=== PATIENT | male | born 1985 | race African-American/Black ===

== ENCOUNTER 2021-09-29 06:50 | Inpatient (IN) | payer OTHER, MEDICAID ==
[~2021-09-29] VITALS: Ht 170.2 cm; Wt 87.6 kg
[2021-09-29] MEDS ORDERED: FAMOTIDINE 20MG/2ML VIAL IV STA (08:34)
[2021-09-29] MEDS ORDERED: MAGNESIUM/ALUMINUM HYDROXIDE/SIMETHICONE 30ML UDC PO STA (08:34)
[2021-09-29] MEDS ORDERED: METOCLOPRAMIDE HCL 10MG/2ML VIAL IV STA ×2 (08:34→09:25)
[2021-09-29] MEDS ORDERED: SODIUM CHLORIDE 0.9% 1,000 ML IV ONE (08:45)
[2021-09-29] MEDS ORDERED: PANTOPRAZOLE SODIUM 40 MG/VIAL IV STA (09:25)
[2021-09-29] MEDS ORDERED: MORPHINE SULFATE 4 MG/ML CPJ (NOT FOR IM USE) IV STA (09:25)
[2021-09-29 10:06] LABS: HEMATOCRIT. 39.1 % (42.0-52.0); HEMOGLOBIN. 12.5 g/dL (14.0-18.0); MEAN CORPUSCULAR HEMOGLOBIN 26.3 pg (28.0-32.0); MEAN CORPUSCULAR VOLUME 81.9 fL (80.0-94.0); MEAN PLATELET VOLUME 9.8 fl (7.4-10.4); PLATELET 96 x1000/uL (130-400); RED BLOOD CELL COUNT 4.78 mill/uL (4.7-6.1); RED CELL DISTRIBUTION WIDTH 22.1 % (11.6-14.6)
[2021-09-29 10:12] LABS: CHLORIDE 109 mEq/L (98-107)
[2021-09-29 10:49] LABS: PLATELET ESTIMATE DECREASED
[2021-09-29] MEDS ORDERED: NITROGLYCERIN 0.4MG TABLET SL SL PRN (11:15)
[2021-09-29] MEDS ORDERED: IPRATROPIUM/ALBUTEROL 0.5-3(2.5)MG/3ML NEB NEB PRN (11:15)
[2021-09-29] MEDS ORDERED: ACETAMINOPHEN 650MG SUPP PR PRN ×2 (11:15)
[2021-09-29] MEDS: DEXT 5%/LACTATED RINGERS 1,000 ML IV SCH ×2 (11:57→23:28)
[2021-09-29] MEDS ORDERED: OCTREOTIDE 1,000 MCG in SODIUM CHLORIDE 0.9% 100 ML IV ONE (12:00)
[2021-09-29] MEDS ORDERED: PANTOPRAZOLE 80 MG in SODIUM CHLORIDE 0.9% 100 ML IV SCH (12:00)
[2021-09-29 12:54] LABS: ETHANOL BLOOD 241 mg/dL
[2021-09-29 12:57] LABS: TOTAL IRON BINDING CAPACITY 386 ug/dL (250-450)
[2021-09-29 13:21] LABS: FOLIC ACID (FOLATE) SERUM 14.7 ng/mL (>5.38)
[2021-09-29] MEDS: PANTOPRAZOLE 80 MG in SODIUM CHLORIDE 0.9% 100 ML IV SCH ×2 (13:27→23:08)
[2021-09-29 14:50] LABS: CLARITY URINE CLEAR (CLEAR); COLOR URINE YELLOW (YELLOW); KETONES URINE NEGATIVE (NEGATIVE); LEUKOCYTE ESTERASE URINE NEGATIVE (NEGATIVE); NITRITE URINE NEGATIVE (NEGATIVE); OCCULT BLOOD URINE NEGATIVE (NEGATIVE); PROTEIN URINE NEGATIVE (NEGATIVE); SPECIFIC GRAVITY URINE 1.025 (1.005-1.030)
[2021-09-29 15:04] LABS: *AMPHETAMINES SCREEN URINE NEGATIVE (NEGATIVE); *BARBITURATES SCREEN URINE NEGATIVE (NEGATIVE); *BENZODIAZEPINES SCREEN URINE NEGATIVE (NEGATIVE); *COCAINE SCREEN URINE NEGATIVE (NEGATIVE)
[2021-09-29 15:05] LABS: CANNABINOID URINE SCREEN PRESUMTIVE POSITIVE (NEGATIVE); METHADONE URINE SCREEN NEGATIVE (NEGATIVE); OPIATES URINE SCREEN PRESUMTIVE POSITIVE (NEGATIVE); PHENCYCLIDINE URINE SCREEN NEGATIVE (NEGATIVE)
[2021-09-29] MEDS ORDERED: PROP10TA10 PO (16:55)
[2021-09-29 17:37] VITALS: BP 158/71
[2021-09-29 20:00] VITALS: BP 153/94
[2021-09-29] MEDS ORDERED: PANTOPRAZOLE SODIUM 40 MG/VIAL IV ONE (22:22)
[2021-09-30] VITALS: BP 144/91
[2021-09-30 04:00] VITALS: BP 150/90
[2021-09-30 08:00] VITALS: BP 150/94
[2021-09-30 08:06] LABS: CHLORIDE 106 mEq/L (98-107)
[2021-09-30 08:07] LABS: HEMATOCRIT. 36.2 % (42.0-52.0); HEMOGLOBIN. 11.6 g/dL (14.0-18.0); MEAN CORPUSCULAR HEMOGLOBIN 26.5 pg (28.0-32.0); MEAN CORPUSCULAR VOLUME 82.7 fL (80.0-94.0); MEAN PLATELET VOLUME 9.8 fl (7.4-10.4); PLATELET 58 x1000/uL (130-400); RED BLOOD CELL COUNT 4.38 mill/uL (4.7-6.1); RED CELL DISTRIBUTION WIDTH 22.8 % (11.6-14.6)
[2021-09-30 08:12] LABS: PHOSPHORUS 3.1 mg/dL (2.5-4.9)
[2021-09-30] MEDS: THIAMINE HCL 100MG TABLET PO SCH (08:52)
[2021-09-30] MEDS: FOLIC ACID 1MG TABLET PO SCH (08:52)
[2021-09-30] MEDS: MULTIVITAMINS,THER W-MINERALS TABLET PO SCH (08:52)
[2021-09-30] MEDS: PANTOPRAZOLE 80 MG in SODIUM CHLORIDE 0.9% 100 ML IV SCH (11:54)
[2021-09-30 12:17] VITALS: BP 145/89
[2021-09-30] MEDS ORDERED: ACETAMINOPHEN 650MG/20.3ML UDC PO PRN (12:30)
[2021-09-30 12:34] LABS: PLATELET ESTIMATE DECREASED
[2021-09-30] MEDS: ACETAMINOPHEN 325MG TABLET PO PRN (12:52)
[2021-09-30] MEDS: DEXT 5%/LACTATED RINGERS 1,000 ML IV SCH (14:00)
[2021-09-30 16:00] VITALS: BP 156/86
[2021-09-30] MEDS: PANTOPRAZOLE SODIUM 40 MG/VIAL IV SCH (16:28)
[2021-09-30 20:00] VITALS: BP 144/90
[2021-10-01] VITALS: BP 144/86
[2021-10-01] MEDS: DEXT 5%/LACTATED RINGERS 1,000 ML IV SCH ×2 (02:25→16:04)
[2021-10-01] MEDS: ACETAMINOPHEN 325MG TABLET PO PRN ×2 (02:31→16:20)
[2021-10-01 04:00] VITALS: BP 151/87
[2021-10-01 06:43] LABS: CHLORIDE 108 mEq/L (98-107)
[2021-10-01 07:10] LABS: HEMATOCRIT. 36.4 % (42.0-52.0); HEMOGLOBIN. 11.5 g/dL (14.0-18.0); MEAN CORPUSCULAR HEMOGLOBIN 26.1 pg (28.0-32.0); MEAN CORPUSCULAR VOLUME 82.3 fL (80.0-94.0); MEAN PLATELET VOLUME 9.7 fl (7.4-10.4); RED BLOOD CELL COUNT 4.42 mill/uL (4.7-6.1); RED CELL DISTRIBUTION WIDTH 22.3 % (11.6-14.6)
[2021-10-01 08:00] VITALS: BP 146/76
[2021-10-01] MEDS: PANTOPRAZOLE SODIUM 40 MG/VIAL IV SCH ×2 (09:03→21:17)
[2021-10-01] MEDS: MULTIVITAMINS,THER W-MINERALS TABLET PO SCH (09:03)
[2021-10-01] MEDS: THIAMINE HCL 100MG TABLET PO SCH (09:03)
[2021-10-01] MEDS: FOLIC ACID 1MG TABLET PO SCH (09:03)
[2021-10-01 09:38] LABS: PLATELET 50 x1000/uL (130-400)
[2021-10-01 12:22] VITALS: BP 142/82
[2021-10-01 14:16] LABS: PLATELET ESTIMATE MARKEDLY DECREASED
[2021-10-01 16:00] VITALS: BP 141/92
[2021-10-01 20:00] VITALS: BP 142/93
[2021-10-02] VITALS: BP 124/70
[2021-10-02] MEDS: ACETAMINOPHEN 325MG TABLET PO PRN (00:30)
[2021-10-02 04:00] VITALS: BP 133/79
[2021-10-02] MEDS: DEXT 5%/LACTATED RINGERS 1,000 ML IV SCH (06:26)
[2021-10-02 07:17] LABS: HEMATOCRIT. 37.4 % (42.0-52.0); MEAN CORPUSCULAR HEMOGLOBIN 26.5 pg (28.0-32.0); MEAN CORPUSCULAR VOLUME 82.6 fL (80.0-94.0); MEAN PLATELET VOLUME 9.7 fl (7.4-10.4); PLATELET 53 x1000/uL (130-400); RED BLOOD CELL COUNT 4.52 mill/uL (4.7-6.1); RED CELL DISTRIBUTION WIDTH 22.1 % (11.6-14.6)
[2021-10-02 07:30] LABS: CHLORIDE 107 mEq/L (98-107)
[2021-10-02 08:00] VITALS: BP 154/73
[2021-10-02] MEDS: MULTIVITAMINS,THER W-MINERALS TABLET PO SCH (08:13)
[2021-10-02] MEDS: THIAMINE HCL 100MG TABLET PO SCH (08:13)
[2021-10-02] MEDS: FOLIC ACID 1MG TABLET PO SCH (08:13)
[2021-10-02] MEDS: PANTOPRAZOLE SODIUM 40 MG/VIAL IV SCH (08:13)
[2021-10-02 11:44] LABS: PLATELET ESTIMATE DECREASED
[2021-10-02 12:00] VITALS: BP 158/102
[2021-10-02 16:00] VITALS: BP 157/95
[2021-10-02] MEDS ORDERED: PROT40 MT (18:18)
[2021-10-02 18:20] VITALS: BP 157/95
[2021-10-02] MEDS ORDERED: SUCR1TAB30 MT (18:20)
== END 2021-10-02 18:50 | disposition home or self-care (01) | DRG 369 ==
LOC: ER 06:50 → 7EST 10:34 → ENRESERV 15:12
PROVIDERS: ADMIT Internal Medicine; ATTEND Internal Medicine
DX: I85.01 Esophageal varices with bleeding (principal); D62 Acute posthemorrhagic anemia; E44.0 Moderate protein-calorie malnutrition; R18.8 Other ascites; K76.6 Portal hypertension; K29.71 Gastritis, unspecified, with bleeding; E66.9 Obesity, unspecified; E83.51 Hypocalcemia; F10.129 Alcohol abuse with intoxication, unspecified; F12.90 Cannabis use, unspecified, uncomplicated; Y90.8 Blood alcohol level of 240 mg/100 ml or more; R00.0 Tachycardia, unspecified; R16.1 Splenomegaly, not elsewhere classified; K22.6 Gastro-esophageal laceration-hemorrhage syndrome; Z76.5 Malingerer [conscious simulation]; Z68.30 Body mass index [BMI] 30.0-30.9, adult; Z71.41 Alcohol abuse counseling and surveillance of alcoholic
CPT/HCPCS: 36415; 76700; 80048; 80053; 80076; 80305; 80320; 81003; 82248; 82607; 82728; 82746; 83540; 83550; 83735; 84100; 84484; 85025; 85044; 86850; 86900; 93970; 99285; C9113; J2270; J2354; J2765; J3490; J7030; J7050; G0480